=== PATIENT | male | born 1990 | race Caucasian/White ===

== ENCOUNTER 2023-03-25 19:08 | Emergency (ER) | payer OTHER, SELFPAY ==
[2023-03-25 19:14] VITALS: BP 152/84; PULSE 92; RESP 18; TEMP 37; O2SAT 97; BMI 30.8
--- NOTE | 2023-03-25 19:28 | XR_ITS ---
The [address] [address] Patient Name: MICHAEL TURPIN MRN: [id number] date: 1990 Sex: M Assigned Patient Location: ER Current Patient Location: ED.MAIN Accession/Order Number: [id number] Exam Date: 03/25/2023 20:10 Report Date: 03/25/2023 21:05 At the request of: KESHIA LEIJA Procedure: XR chest 1V XR chest 1V 03/25/2023 8:10 PM EDT CLINICAL INDICATION: Stroke COMPARISON: None. TECHNIQUE: Portable semiupright AP view of the chest. FINDINGS: There are no tubes or implants noted. The cardiomediastinal silhouette and pulmonary vasculature are within normal limits. The lungs are clear. No pneumothorax or pleural effusion. Osseous structures and soft tissues are within normal limits. XR/XR chest 1V IMPRESSION: No acute cardiopulmonary abnormality. Electronically authenticated by: SALVADOR MANCIA Date: 03/25/2023 21:05
--- NOTE | 2023-03-25 19:28 | CT_ITS ---
The [address] [address] Patient Name: MICHAEL TURPIN MRN: [id number] date: 1990 Sex: M Assigned Patient Location: ER Current Patient Location: Accession/Order Number: [id number] Exam Date: 03/25/2023 19:40 Report Date: 03/25/2023 21:52 At the request of: KESHIA LEIJA Procedure: CT angio head EXAMINATION: CT angio head, CT angio neck HISTORY: cva confusion, left arm numbness for one hour. COMPARISON: Head CT same date. TECHNIQUE: Axial CT images were then obtained through the head after the administration of intravenous contrast utilizing a CT angiogram protocol. Coronal and sagittal maximum intensity projection (MIPS) images were also obtained. Dose reduction techniques were achieved by using: automated exposure control and/or adjustment of mA and /or kV according to patient size and/or use of iterative reconstruction technique. FINDINGS: CTA HEAD: Flow in all major intracranial arteries without large vessel occlusion. Evaluation for aneurysm or vascular malformation constrained by venous contamination. Within constraints of exam, no evidence for intracranial aneurysms or vascular malformations. CTA NECK: No stenosis at the origins of the great vessels. No stenosis of the carotid arteries by NASCET criteria. The vertebral arteries are patent without flow-limiting stenosis. No airspace infiltrates in the included lung apices. CT/CT angio head IMPRESSION: 1. No flow-limiting stenosis in the major intracranial arteries. 2. No stenosis of the extracranial arterial circulation. Electronically authenticated by: NEYR MCGHEE Date: 03/25/2023 21:52
--- NOTE | 2023-03-25 19:28 | ECG_ITS ---
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
--- NOTE | 2023-03-25 19:28 | CT_ITS ---
The [address] [address] Patient Name: MICHAEL TURPIN MRN: [id number] date: 1990 Sex: M Assigned Patient Location: ER Current Patient Location: Accession/Order Number: [id number] Exam Date: 03/25/2023 19:40 Report Date: 03/25/2023 21:52 At the request of: KESHIA LEIJA Procedure: CT angio neck EXAMINATION: CT angio head, CT angio neck HISTORY: cva confusion, left arm numbness for one hour. COMPARISON: Head CT same date. TECHNIQUE: Axial CT images were then obtained through the head after the administration of intravenous contrast utilizing a CT angiogram protocol. Coronal and sagittal maximum intensity projection (MIPS) images were also obtained. Dose reduction techniques were achieved by using: automated exposure control and/or adjustment of mA and /or kV according to patient size and/or use of iterative reconstruction technique. FINDINGS: CTA HEAD: Flow in all major intracranial arteries without large vessel occlusion. Evaluation for aneurysm or vascular malformation constrained by venous contamination. Within constraints of exam, no evidence for intracranial aneurysms or vascular malformations. CTA NECK: No stenosis at the origins of the great vessels. No stenosis of the carotid arteries by NASCET criteria. The vertebral arteries are patent without flow-limiting stenosis. No airspace infiltrates in the included lung apices. CT/CT angio neck IMPRESSION: 1. No flow-limiting stenosis in the major intracranial arteries. 2. No stenosis of the extracranial arterial circulation. Electronically authenticated by: NERY MCGHEE Date: 03/25/2023 21:52
--- NOTE | 2023-03-25 19:28 | CT_ITS ---
The [address] [address] Patient Name: MICHAEL TURPIN MRN: [id number] date: 1990 Sex: M Assigned Patient Location: ER Current Patient Location: ER Accession/Order Number: [id number] Exam Date: 03/25/2023 19:30 Report Date: 03/25/2023 22:07 At the request of: KESHIA LEIJA Procedure: CT stroke head/brain wo con PROCEDURE: CT stroke head/brain wo con, 03/25/2023 7:30 PM EDT CLINICAL INDICATIONS: Transient global amnesia, left arm paresthesias and numbness COMPARISON: None TECHNIQUE: Thin section axial images obtained through the brain without IV contrast. Helical acquisition technique was utilized with multiplanar reformatted images obtained. Dose reduction techniques were achieved by using automated exposure control and/or adjustment of mA and/or kV according to patient size and/or use of iterative reconstruction technique. FINDINGS: Ventricular system and CSF spaces are age appropriate. The vazquez and white matter differentiation is preserved. Acute hemorrhage or mass effect is not demonstrated. No abnormal extraaxial fluid collection is seen. Relative low density of the inferior right temporal lobe is likely related to beam hardening artifact, canted position of the patient within the gantry. There is no related mass effect. Paranasal sinuses are clear. Mastoid air cells and middle ear are clear. Displaced calvarium fracture is not seen. Regional soft tissues are unremarkable. CT/CT stroke head/brain wo con IMPRESSION: 1. No convincing sign of acute intracranial hemorrhage or mass effect. 2. There is relative low density of the inferior temporal lobe right greater than left. Beam hardening artifact is favored. If of clinical merit, MRI may be helpful in further characterization. Electronically authenticated by: CARLOS QUINONES Date: 03/25/2023 22:07
--- NOTE | 2023-03-25 19:31 | ED_ITS ---
HPI - Altered Mental Status General Chief Complaint: Altered Mental Status Stated Complaint: ARM NUMBNESS, CONFUSION Time Seen by Provider: 03/25/23 19:28 Source: patient Mode of arrival: Wheelchair Limitations: no limitations History of Present Illness HPI narrative: Patient is brought into the emergency department with a complaint of confusion. Patient was driving home from work and as he was driving he developed confusion, he states does not know where he was sat but he wasn't the area where he had grown out. He picked up the phone and called his 1st contact was his best friend started indicating verbally to the patient whether he should turn left and right to get to the local mutual friends house. Patient states when he got there he broke down because he was so confused about what happened. Patient states he drank between 9 and 12 beers throughout the day. He denies any headache, visual disturbance or speech difficulty. He denies any weakness and states he had paresthesias to his left arm. He denies any previous history of stroke. States symptoms lasted approximately 15 minutes. Patient never had episodes like this before. His back at his baseline. Just wants to get checked out. He denies any chest pain, shortness of breath. He denies any nausea, vomiting, diarrhea, constipation. Patient states He had been out working all day and maybe he was dehydrated. Related Data Home Medications Medication Instructions Recorded Confirmed No Known Home Medications 03/25/23 03/25/23 Allergies Allergy/AdvReac Type Severity Reaction Status Date / Time No Known Drug Allergies Allergy Verified 03/25/23 19:26 Review of Systems ROS Status of ROS 10 or more systems reviewed and unremarkable except as noted in history and below [facility] Social History Smoking status: Never smoker Exam Narrative Exam Narrative: Nurses notes and vital signs reviewed and patient is not hypoxic. General: Nontoxic, alcohol onboard, patient appropriate, and in no apparent distress. Skin: Warm, dry, no pallor noted. No Rash Head: Normocephalic, atraumatic. Neck: Supple, non-tender. Eye: Pupils are equal, round and EOMI. No scleral icterus. Ears, Nose, Mouth, and Throat: TM clear, no posterior oropharynx erythema or nasal mucosal hypertrophy, uvula is mid-line Oral mucosa is moist Cardiovascular: Regular Rate and Rhythm without murmur, gallop or rub. Respiratory: No accessory muscle use or respiratory distress. Lungs are clear to auscultation, no wheezing, rales or rhonchi Chest Wall: no tenderness Back: No midline thoracic or lumbar vertebral tenderness. No CVA tenderness Musculoskeletal: normal ROM, no calf or popliteal tenderness, no lower extremity edema/swelling GI: Abdomen is soft, non-distended. Normal bowel sounds. No masses appreciated. No tenderness to palpation. No rebound, guarding, or rigidity noted. Neurological: A&O x4. No cranial nerve dysfunction observed. No truncal ataxia. Moves all extremities. Sensation intact. Psychiatric: Cooperative and interactive. Normal mood and affect. Constitutional Vital Signs, click to edit/add: Last Vital Signs Temp 98.6 F 03/25/23 19:14 Pulse 96 H 03/25/23 23:10 Resp 20 03/25/23 23:10 BP 127/88 03/25/23 23:10 Pulse Ox 99 03/25/23 23:10 O2 Del Method Room Air 03/25/23 23:10 Course Vital Signs Vital signs: Vital Signs Temperature 98.6 F 03/25/23 19:14 Pulse Rate 92 H 03/25/23 19:14 Respiratory Rate 18 03/25/23 19:14 Blood Pressure 152/84 H 03/25/23 19:14 Pulse Oximetry 97 03/25/23 19:14 Oxygen Delivery Method Room Air 03/25/23 19:14 Temperature 98.6 F 03/25/23 19:14 Pulse Rate 96 H 03/25/23 23:10 Respiratory Rate 20 03/25/23 23:10 Blood Pressure 127/88 03/25/23 23:10 Pulse Oximetry 99 03/25/23 23:10 Oxygen Delivery Method Room Air 03/25/23 23:10 MDM - Altered Mental Status MDM Narrative Medical decision making narrative: Patient had a normal CT, and CTAs. Stroke workup was done. Patient's alcohol level is 3 times the legal limit. I advised patient not to drive while intoxica rosa. The patient is neurologically intact at this time. All of his symptoms have resolved. Patient was discussed with Dr. Starr the stroke doctor and per bradford Mackenzie who advised him patient symptomatology is more consistent with a metabolic than CVA. He advised the patient can be discharged home and follow-up as an outpatient with primary care doctor, neurology and to get an MRI. MRI ordered provided to the patient. He is advised to return to the emergency department if any other symptoms develop. At this time the patient is without objective evidence of an acute process requiring hospitalization or inpatient management. The patient has remained hemodynamically stable. No additional indication for emergent studies at this time. I answered all questions. Discussed discharge instructions including standard anticipatory guidance and what should prompt a return to the emergency department, including if they get worse are not getting better or develops any new or concerning symptoms. I've given them specific time frame in which to follow-up, and who to follow-up with. The patient demonstrates understanding. Patient is nontoxic and stable for discharge with outpatient follow-up. This note was created with the assistance of a speech recognition program. Although the intention is to generate documents that actually reflects the content of the visit, no guarantees can be provided that every mistake has been identified and corrected by editing. Differential Diagnosis Differential diagnosis: Likely alcoholic intoxication and altered mental status Medical Records Attestation: I reviewed the patient's medical records. Lab Data Attestation: I reviewed the patient's lab results. Labs: Lab Results 03/25/23 Range/Units 19:30 WBC 11.3 H (4.0-11.0) 10^3/uL RBC 5.08 (4.70-6.10) 10^6/uL Hgb 14.5 (14.0-18.0) g/dL Hct 43.2 (42.0-54.0) % MCV 85.0 (80.0-94.0) fL MCH 28.5 (25.9-34.0) pg MCHC 33.6 (29.9-35.2) g/dL RDW 15.2 H (11.0-15.0) % Plt Count 310 (150-450) 10^3/uL MPV 10.9 (9.5-13.5) fL Neut % (Auto) 74.9 (43.0-75.0) % Lymph % (Auto) 18.2 L (20.5-60.0) % Elliott % (Auto) 5.2 (1.7-12.0) % Eos % (Auto) 0.8 L (0.9-7.0) % Baso % (Auto) 0.6 (0.2-2.0) % Neut # (Auto) 8.5 H (1.4-6.5) 10^3/uL Lymph # (Auto) 2.1 (1.2-3.8) 10^3/uL Elliott # (Auto) 0.6 (0.3-0.8) 10^3/uL Eos # (Auto) 0.1 (0.0-0.7) 10^3/uL Baso # (Auto) 0.1 (0.0-0.1) 10^3/uL Abs Immat Gran (auto) 0.03 (0.00-0.03) 10^3/uL Imm/Tot Granulo (auto) 0.3 (0.0-0.5) % PT 10.3 (9.0-11.6) sec INR 0.97 APTT 24.0 (22.3-36.2) sec Sodium 137 (136-145) mmol/L Potassium 3.5 (3.5-5.1) mmol/L Chloride 100 (98-107) mmol/L Carbon Dioxide 28.4 (21.0-32.0) mmol/L Anion Gap 12.1 BUN 8.0 (7.0-18.0) mg/dL Creatinine 1.20 (0.70-1.30) mg/dL Est GFR ( Amer) >60 (>=60) Est GFR (Non-Af Amer) >60 (>=60) BUN/Creatinine Ratio 6.7 Glucose 71 L (74-106) mg/dL Calcium 9.0 (8.5-10.1) mg/dL Total Bilirubin 0.5 (0.2-1.0) mg/dL AST 33 (15-37) U/L ALT 29 (16-63) U/L Alkaline Phosphatase 93 (46-116) U/L Troponin I High Sens 4.7 (4.0-76.1) pg/mL Total Protein 8.1 (6.4-8.2) g/dL Albumin 4.4 (3.4-5.0) g/dL Globulin 3.7 g/dL Albumin/Globulin Ratio 1.2 Urine Opiates Screen Negative (NEGATIVE) Ur Buprenorphine Scrn Negative (NEGATIVE) Ur Oxycodone Screen Negative (NEGATIVE) Urine Methadone Screen Negative (NEGATIVE) Ur Propoxyphene Screen Negative (NEGATIVE) Ur Barbiturates Screen Negative (NEGATIVE) U Tricyclic Antidepress Negative (NEGATIVE) Ur Phencyclidine Scrn Negative (NEGATIVE) Ur Amphetamines Screen Negative (NEGATIVE) U Methamphetamines Scrn Negative (NEGATIVE) U Benzodiazepines Scrn Negative (NEGATIVE) Urine Cocaine Screen Negative (NEGATIVE) U Cannabinoids Screen Negative (NEGATIVE) Ethanol Quant 268 mg/dL ECG Data Attestation: I personally reviewed and interpreted this ECG as follows: Discharge Plan Discharge Chief Complaint: Altered Mental Status Clinical Impression: Acute dehydration, Alcoholic intoxication, Altered mental status Patient Disposition: Home, Self-Care Time of Disposition Decision: 22:51 Condition: Good Mode of Transportation: Private Vehicle Prescriptions / Home Meds: No Action No Known Home Medications Instructions: Dehydration (ED), Alcohol Intoxication (DC), Altered Mental Status (ED) Additional Instructions: Follow-up with her primary care doctor Monday. Do not drive while drinking alcohol. Get the MRI done as an outpatient. Drink plenty of fluids. Stand Alone Forms: Portal Instructions Discharge Date/Time: 03/25/23 23:13
[2023-03-25 19:34] VITALS: PULSE 96
[2023-03-25 19:52] LABS: Basophils Absolute Auto 0.1 10^3/uL (0.0-0.1); Basophils Percent Auto 0.6 % (0.2-2.0); Eosinophils Absolute Auto 0.1 10^3/uL (0.0-0.7); Eosinophils Percent Auto 0.8 % (0.9-7.0); Hematocrit 43.2 % (42.0-54.0); Hemoglobin 14.5 g/dL (14.0-18.0); Immature Granulocytes Abs Auto 0.03 10^3/uL (0.00-0.03); Immature Granulocytes Pct Auto 0.3 % (0.0-0.5); Lymphocytes Absolute Auto 2.1 10^3/uL (1.2-3.8); Lymphocytes Percent Auto 18.2 % (20.5-60.0); Mean Corpuscular HGB Conc 33.6 g/dL (29.9-35.2); Mean Corpuscular Hemoglobin 28.5 pg (25.9-34.0); Mean Platelet Volume 10.9 fL (9.5-13.5); Monocytes Absolute Auto 0.6 10^3/uL (0.3-0.8); Monocytes Percent Auto 5.2 % (1.7-12.0); Neutrophils Absolute Auto 8.5 10^3/uL (1.4-6.5); Neutrophils Percent Auto 74.9 % (43.0-75.0); Platelet Count 310 10^3/uL (150-450); Red Blood Count 5.08 10^6/uL (4.70-6.10); Red Cell Distribution Width 15.2 % (11.0-15.0); White Blood Count 11.3 10^3/uL (4.0-11.0)
[2023-03-25 20:01] LABS: Amphetamine Screen Urine NEGATIVE (NEGATIVE); Barbiturates Screen Urine NEGATIVE (NEGATIVE); Benzodiazepines Screen Urine NEGATIVE (NEGATIVE); Buprenorphine Screen Urine NEGATIVE (NEGATIVE); Cannabinoid Screen Urine NEGATIVE (NEGATIVE); Cocaine Screen Urine NEGATIVE (NEGATIVE); Methadone Screen Urine NEGATIVE (NEGATIVE); Methamphetamines Screen Urine NEGATIVE (NEGATIVE); Opiate Screen Urine NEGATIVE (NEGATIVE); Oxycodone Screen Urine NEGATIVE (NEGATIVE); Phencyclidine Screen Urine NEGATIVE (NEGATIVE); Tricyclic Antidepressant Urine NEGATIVE (NEGATIVE)
[2023-03-25 20:04] LABS: INR 0.97; Prothrombin Time 10.3 sec (9.0-11.6)
[2023-03-25 20:05] LABS: Alanine Aminotransferase 29 U/L (16-63); Albumin Globulin Ratio 1.2; Albumin Level 4.4 g/dL (3.4-5.0); Alkaline Phosphatase 93 U/L (46-116); Anion Gap 12.1; Aspartate Amino Transferase 33 U/L (15-37); BUN Creatinine Ratio 6.7; Bilirubin Total 0.5 mg/dL (0.2-1.0); Carbon Dioxide 28.4 mmol/L (21.0-32.0); Chloride 100 mmol/L (98-107); Estimated GFR (African America >60 (>=60); Estimated GFR (Non-African Ame >60 (>=60); Globulin 3.7 g/dL; Glucose 71 mg/dL (74-106); Potassium 3.5 mmol/L (3.5-5.1); Sodium 137 mmol/L (136-145); Total Protein 8.1 g/dL (6.4-8.2)
[2023-03-25 20:07] LABS: Ethanol 268 mg/dL; Troponin I High Sensitivity 4.7 pg/mL (4.0-76.1)
[2023-03-25 20:45] VITALS: BP 116/82; PULSE 98; RESP 20; O2SAT 99
[2023-03-25 21:52] VITALS: BP 123/83; PULSE 94; RESP 20; O2SAT 98
[2023-03-25 23:10] VITALS: BP 127/88; PULSE 96; RESP 20; O2SAT 99
== END 2023-03-25 23:13 | disposition home or self-care (01) ==
PROVIDERS: Emergency Provider Emergency Medicine
DX: E86.0 Dehydration (principal); F10.129 Alcohol abuse with intoxication, unspecified; Y90.8 Blood alcohol level of 240 mg/100 ml or more; R41.82 Altered mental status, unspecified
CPT/HCPCS: 36415; 70450; 70496; 70498; 71045; 80053; 80307; 80320; 84484; 85025; 85610; 85730; 93005; 99285; Q9967